=== PATIENT | male | born 1980 | race Caucasian/White ===

== ENCOUNTER 2023-03-23 16:15 | Emergency (ER) | payer BC, OTHER ==
[2023-03-23 16:38] VITALS: BP 136/83; PULSE 85; RESP 16; TEMP 99; BMI 23.4
== END 2023-03-23 16:38 | disposition home or self-care (01) ==
LOC: FER 16:15
DX: S10.96XA Insect bite of unspecified part of neck, initial encounter (principal); R51.9 Headache, unspecified; R68.83 Chills (without fever); R53.1 Weakness; M79.10 Myalgia, unspecified site; H92.03 Otalgia, bilateral; G47.00 Insomnia, unspecified; W57.XXXA Bitten or stung by nonvenomous insect and other nonvenomous arthropods, initial encounter
CPT/HCPCS: 99282-25